=== PATIENT | male | born 1970 | race Hispanic/Latino ===

== ENCOUNTER 2022-11-13 20:34 | Emergency (ER) | payer OTHER, SELFPAY ==
[2022-11-13] MEDS ORDERED: HYDROcodone/Acetaminophen 10/325 mg Tablet ONE (21:36)
== END 2022-11-13 22:07 | disposition home or self-care (01) ==
LOC: ERS 20:34
DX: M54.41 Lumbago with sciatica, right side (principal); E11.9 Type 2 diabetes mellitus without complications